=== PATIENT | female | born 1985 | race Caucasian/White ===

== ENCOUNTER 2017-12-24 18:03 | Emergency (ER) | payer MEDICAID | END 2017-12-24 20:42 | disposition home or self-care (01) | LOC: E/R 20:42 | DX: S16.1XXA Strain of muscle, fascia and tendon at neck level, initial encounter (principal); M25.512 Pain in left shoulder; W18.30XA Fall on same level, unspecified, initial encounter; Y92.002 Bathroom of unspecified non-institutional (private) residence as the place of occurrence of the external cause | CPT/HCPCS: 72040; 73030; 99284-25 ==

== ENCOUNTER 2018-09-29 11:56 | Emergency (ER) | payer MEDICAID ==
[2018-09-29] MEDS ORDERED: IBUPROFEN 600 MG TAB (12:57)
[2018-09-29] MEDS ORDERED: ACETAMINOPHEN 325 MG TAB (12:57)
[2018-09-29] MEDS: IBUPROFEN 600 MG TAB PO (13:03)
[2018-09-29] MEDS: ACETAMINOPHEN 325 MG TAB PO (13:03)
== END 2018-09-29 13:31 | disposition home or self-care (01) ==
LOC: FTE 11:56
DX: M54.2 Cervicalgia (principal); M62.838 Other muscle spasm
CPT/HCPCS: 99282; Z7502